=== PATIENT | male | born 1995 | race Caucasian/White ===

== ENCOUNTER 2023-03-24 15:44 | Emergency (ER) | payer OTHER, SELFPAY ==
[2023-03-24] MEDS ORDERED: Divalproex Sodium 250 MG (DR) TAB ONE (16:55)
== END 2023-03-24 17:22 ==
LOC: ERS 15:44 → EEVIPCON 15:44 → ERS 17:22
DX: R56.9 Unspecified convulsions (principal)
CPT/HCPCS: 36416; 93005